=== PATIENT | female | born 1995 | race Caucasian/White ===

== ENCOUNTER 2024-03-24 05:13 | Inpatient (IN) | payer BC ==
[2024-03-24 05:49] VITALS: BMI 42.4
[2024-03-24 06:42] LABS: Fetal Membranes Rupture RUPTURE DETECTED (No Rupture)
[2024-03-24] MEDS ORDERED: Promethazine HCl 25 MG/ML VIAL IM PRN ×2 (07:33→23:07)
[2024-03-24] MEDS ORDERED: HYDROcodone/Acetaminophen 5/325 mg Tablet PO PRN ×2 (07:33)
[2024-03-24] MEDS ORDERED: Ondansetron PF 4 MG/2 ML Vial IVP PRN (07:33)
[2024-03-24] MEDS ORDERED: Ibuprofen 800 MG TAB PO PRN (07:33)
[2024-03-24] MEDS ORDERED: fentaNYL 50 mcg/mL 1 mL Vial SLOW IVP PRN (07:33)
[2024-03-24] MEDS ORDERED: Lidocaine 1% (PF) 30 ML VIAL SC PRN (07:33)
[2024-03-24] MEDS ORDERED: Lactated Ringer's 1,000 ML IV PRN (07:33)
[2024-03-24] MEDS ORDERED: hydrALAZINE 20 MG/ML VIAL SLOW IVP PRN (07:33)
[2024-03-24] MEDS ORDERED: Misoprostol 200 MCG TAB PR PRN (07:33)
[2024-03-24] MEDS ORDERED: Oxytocin 30 units/NS 500 ML 500 ML IV SCH ×2 (07:45)
[2024-03-24 07:50] LABS: Hematocrit 35.3 % (34.9-44.5); Mean Corpuscular Hemoglobin 29.4 pg (27.0-33.0); Mean Corpuscular Volume 86.5 fL (81.6-98.3); Mean Platelet Volume 10.7 fL (7.4-10.4); Platelet Count 169 10x3/uL (150-450); RBC Distribution Width 13.4 % (11.5-14.5); Red Blood Cell (RBC) Count 4.08 10x6/uL (3.90-5.03); White Blood Cell (WBC) Count 10.69 10x3/uL (3.5-10.5)
[2024-03-24 08:22] LABS: HBsAg Index 0.27 S/CO (0-0.99); Hep B Surf Ag - L&D Non-Reactive S/CO (NonReactive)
[2024-03-24 08:27] LABS: Syphilis Antibody Nonreactive (Nonreactive); Syphilis Antibody Index 0.05 S/CO (<1.00 Non-Reactive)
[2024-03-24] MEDS: Misoprostol 100 MCG TAB PO SCH (08:45)
[2024-03-24] MEDS: fentaNYL/Ropivacaine Epidural 100 ML ONE (23:02)
[2024-03-24] MEDS ORDERED: diphenhydrAMINE 50 MG/ML VIAL IVP PRN (23:07)
[2024-03-24] MEDS ORDERED: Moisturizing Cream (Eucerin) 113 GM JAR TOP PRN (23:07)
[2024-03-24] MEDS ORDERED: Naloxone HCl 0.4 mg/ml Vial IVP PRN ×2 (23:07)
[2024-03-24] MEDS ORDERED: ePHEDrine Sulfate 50 MG/10 ML VIAL SLOW IVP PRN (23:07)
[2024-03-24] MEDS ORDERED: Communication Order-Pharmacy FS SCH (23:15)
[2024-03-24] MEDS ORDERED: fentaNYL 2 mcg/Ropivacaine 0.2% Epidural 100 ML CADD EPIDURAL SCH (23:15)
[2024-03-24] MEDS ORDERED: Lactated Ringer's 500 ML IV PRN (23:17)
[2024-03-25] MEDS: Ondansetron PF 4 MG/2 ML Vial IVP PRN (11:29)
[2024-03-25] MEDS: Bicitra 30 ML UDCUP ONE (11:29)
[2024-03-25] MEDS: CEFAZOLIN 2 GM VIAL ONE (11:29)
[2024-03-25] MEDS ORDERED: Naloxone HCl 0.4 mg/ml Vial IVP PRN ×2 (12:49)
[2024-03-25] MEDS ORDERED: Naloxone HCl 0.4 mg/ml Vial IV PRN (12:49)
[2024-03-25] MEDS ORDERED: Ondansetron PF 4 MG/2 ML Vial IVP PRN ×2 (12:49)
[2024-03-25] MEDS ORDERED: diphenhydrAMINE 50 MG/ML VIAL IVP PRN (12:49)
[2024-03-25] MEDS ORDERED: Meperidine HCl/PF 25 MG (1 mL) VIAL SLOW IVP PRN (12:49)
[2024-03-25] MEDS ORDERED: Promethazine HCl 25 MG/ML VIAL IM PRN (12:49)
[2024-03-25] MEDS ORDERED: Moisturizing Cream (Eucerin) 113 GM JAR TOP PRN (12:49)
[2024-03-25] MEDS ORDERED: HYDROmorphone 0.5 MG/0.5 ML SYRINGE SLOW IVP PRN (12:49)
[2024-03-25] MEDS ORDERED: Communication Order-Pharmacy FS SCH (13:00)
[2024-03-25] MEDS ORDERED: Lanolin Ointment 7 GM TUBE TOP PRN (13:29)
[2024-03-25] MEDS ORDERED: Methylergonovine 0.2 MG/ML VIAL IM PRN (13:29)
[2024-03-25] MEDS ORDERED: Acetaminophen 325 MG TAB PO PRN (13:29)
[2024-03-25] MEDS ORDERED: diphenhydrAMINE 25 MG CAP PO PRN (13:29)
[2024-03-25] MEDS ORDERED: Misoprostol 200 MCG TAB PR PRN (13:29)
[2024-03-25] MEDS ORDERED: hydrALAZINE 20 MG/ML VIAL SLOW IVP PRN (13:29)
[2024-03-25 13:36] LABS: Analyzer IN Cardio CS NICU; RapidComm Collect By NURSE
[2024-03-25 13:38] LABS: Analyzer IN Cardio CS NICU; RapidComm Collect By NURSE; pH (Cord, venous) 7.215 (7.250-7.350)
[2024-03-25] MEDS: Ketorolac Tromethamine 30 MG (1 mL) VIAL IVP PRN (13:56)
[2024-03-25] MEDS: fentaNYL 50 mcg/mL 1 mL Vial SLOW IVP PRN (14:35)
[2024-03-25] MEDS: Dexmedetomidine 200 MCG/2 ML VIAL ONE ×2 (16:47)
[2024-03-25] MEDS: Azithromycin 500 MG VIAL ONE (16:47)
[2024-03-25] MEDS: CEFAZOLIN 1 GM VIAL ONE (16:47)
[2024-03-25] MEDS: Famotidine/PF 20 mg/2ml Vial ONE (16:47)
[2024-03-25] MEDS: Morphine PF 10 MG/10 ML VIAL ONE (16:47)
[2024-03-25] MEDS: fentaNYL 50 mcg/mL 1 mL Vial ONE (16:47)
[2024-03-25] MEDS: Midazolam HCl 2 mg/2 ml Vial ONE (16:48)
[2024-03-25] MEDS: Oxytocin 10 UNITS/ML VIAL ONE (16:48)
[2024-03-25] MEDS: Lidocaine 2% MPF 10 ML AMP (For Epidural Use) ONE (16:48)
[2024-03-25] MEDS: Boostrix 0.5 ML (Tdap) VIAL (>/=7 yrs of age) IM ONE (17:46)
[2024-03-25] MEDS: Acetaminophen 325 MG TAB PO PRN (17:46)
[2024-03-25] MEDS: Docusate 100 MG CAP PO SCH (20:55)
[2024-03-26 04:17] LABS: Hematocrit 29.8 % (34.9-44.5); Hemoglobin 10.1 g/dL (12.0-15.5); Mean Corpuscular HGB CONC 33.9 g/dL (32.0-36.0); Mean Corpuscular Hemoglobin 29.8 pg (27.0-33.0); Mean Corpuscular Volume 87.9 fL (81.6-98.3); Mean Platelet Volume 10.6 fL (7.4-10.4); Platelet Count 169 10x3/uL (150-450); Red Blood Cell (RBC) Count 3.39 10x6/uL (3.90-5.03); White Blood Cell (WBC) Count 17.73 10x3/uL (3.5-10.5)
[2024-03-26] MEDS: Lactated Ringer's 1,000 ML IV SCH ×2 (06:00→21:21)
[2024-03-26] MEDS: Prenatal Vitamin 1 TAB PO SCH (08:39)
[2024-03-26] MEDS: HYDROcodone/Acetaminophen 5/325 mg Tablet PO PRN (08:40)
[2024-03-26] MEDS: Enoxaparin 40 MG (0.4 mL) SYRINGE SC SCH (09:38)
[2024-03-26] MEDS ORDERED: Bupivacaine HCl 0.5%/Epinephrine 1:200,000/PF 30 ml Vial ONE (14:00)
[2024-03-26] MEDS ORDERED: Bupivacaine/Epinephrine 0.25% 30 ML VIAL ONE (14:00)
[2024-03-26 14:12] LABS: Hematocrit 30.3 % (34.9-44.5); Hemoglobin 10.1 g/dL (12.0-15.5)
[2024-03-26] MEDS: Ibuprofen 800 MG TAB PO SCH (17:32)
[2024-03-27] MEDS: Simethicone Chewable 80 MG TAB PO PRN (20:07)
[2024-03-28] MEDS: Ibuprofen 800 MG TAB PO SCH (21:51)
[2024-03-29 08:08] VITALS: BP 118/84; TEMP 98.2
== END 2024-03-29 11:25 | disposition home or self-care (01) | DRG 788 ==
LOC: CSHLD/OP 05:13 → CSHLD 07:15 → CSHPP 03-25 16:05
PROVIDERS: ADMIT Obstetrics & Gynecology; ATTEND Obstetrics & Gynecology
PROC: 10D00Z1 Extraction of Products of Conception, Low, Open Approach (ICD-10-PCS; principal; 2024-03-25)
DX: O42.02 Full-term premature rupture of membranes, onset of labor within 24 hours of rupture (principal); Z3A.40 40 weeks gestation of pregnancy; Z37.0 Single live birth; O32.4XX0 Maternal care for high head at term, not applicable or unspecified; O48.0 Post-term pregnancy; Z79.82 Long term (current) use of aspirin; Z88.2 Allergy status to sulfonamides; O99.214 Obesity complicating childbirth
CPT/HCPCS: 36415; 51702; 82805; 84112; 84443; 85027; 86780; 86850; 86900; 86901; 87340; 93005; 93010; 99285; J1650; J1885; J2250; J2274; J2405; J2590; J3010; J3490; J7120; S3620